=== PATIENT | female | born 1970 | race Caucasian/White ===

== ENCOUNTER → 2018-03-09 | Outpatient (CLI) | payer BC, OTHER ==
--- NOTE | 2018-03-13 16:48 | MAM ---
EXAM DESCRIPTION: 3D Screening BILATERAL : Digital Mammography. CLINICAL HISTORY: 48 years Female SCREENING . No complaints or personal history of breast cancer. Remote family history of breast cancer. Childbirth. Postmenopausal 24 years. Currently on HRT. Lifetime risk of developing breast cancer (Tyrer-Cuzick model)(%): 7.4. COMPARISON: Baseline study at this facility. No prior reports available. TECHNIQUE: Bilateral CC and MLO projection full-field images, digital tomosynthesis mammographic technique. Bilateral digital 2-D full-field MLO images. CAD not available for tomosynthesis or 2-D images. FINDINGS: The breast parenchymal density pattern is: Extremely dense breast tissue, which lowers the sensitivity of mammography. No skin thickening or nipple retraction. Focal asymmetry at the 6:00 position of the middle third of the right breast approximately 5 cm from the nipple. Not associated with microcalcifications. No new focal, stellate mass or density, focal asymmetry , and no suspicious microcalcifications left breast. IMPRESSION: BI-RADS CATEGORY: 0 - INCOMPLETE- Need additional imaging evaluation. FOLLOW-UP: Recall for additional imaging: Targeted right breast ultrasound of the region of interest. Bilateral orthogonal full-field tomosynthesis. Written communication concerning the IMPRESSION and Follow-up, will be mailed to the patient and referring health care provider. Electronically signed by: Papa Harper MD 03/13/2018 4:46 PM [employer]S DEPARTMENT MANAGER
== END ==
LOC: MAMMO 15:14
PROVIDERS: ATTEND Nurse Practitioner Family
DX: Z12.31 Encounter for screening mammogram for malignant neoplasm of breast (principal)

== ENCOUNTER → 2018-07-11 | Outpatient (CLI) | payer OTHER ==
--- NOTE | 2018-07-11 14:06 | CT ---
EXAM DESCRIPTION: Chest w/Contrast CLINICAL HISTORY: 48 years, Female, HEMOPTYSIS R04.2 COMPARISON: None TECHNIQUE: Thin-section noncontrast axial CT images are obtained according to our protocol. Reconstructed MPR images are created and reviewed as well. FINDINGS: Lungs: Patchy infiltrates are seen in the right lower, middle and upper lobes with lesser involvement of the left upper lobe. In the apices, biapical pleural-parenchymal scarring is thought to account for abnormal densities. Differential considerations would include bacterial pneumonia, aspiration pneumonitis or scattered areas of pulmonary hemorrhage. Pulmonary alveolar proteinosis or acute hypersensitivity pneumonitis could have the same appearance. Eosinophilic pneumonia would be considered if the patient has peripheral eosinophilia. Mediastinum: Lymph nodes are normal in size. Normal vascular contours. Heart size is normal with no pericardial effusion. Chest wall/axilla: No mass or adenopathy. Breast tissue appears symmetrical. Lower neck/supraclavicular: No mass or adenopathy. Upper abdomen: Unremarkable upper abdominal viscera. Coronal and sagittal reformatted images confirm the findings. IMPRESSION: Bilateral pulmonary infiltrates. See above. This exam was performed according to our departmental dose-optimization program, which includes automated exposure control, adjustment of the mA and/or kV according to patient size and/or use of iterative reconstruction technique. Total DLP equals 175.71 mGycm. Electronically signed by: Ramez Edwards MD 07/11/2018 2:03 PM CDT
== END ==
LOC: CT 11:36
PROVIDERS: ATTEND Nurse Practitioner Family
DX: R04.2 Hemoptysis (principal); R91.8 Other nonspecific abnormal finding of lung field

== ENCOUNTER → 2019-09-14 | Outpatient (CLI) | payer BC ==
--- NOTE | 2019-09-18 16:22 | MAM ---
EXAM DESCRIPTION: 3D Screening BILATERAL : Digital Mammography. CLINICAL HISTORY: 49 years Female SCREENING . No complaints or personal history of breast cancer. Remote family history of breast cancer. Menarche age 11. Childbirth age 19. Menopause age 24. Currently on HRT. Bilateral benign cyst aspiration. Lifetime risk of developing breast cancer (Tyrer-Cuzick model)(%): 11.6. COMPARISON: Bilateral screening digital breast tomosynthesis March 2018. TECHNIQUE: Bilateral CC and MLO projection full-field images, digital tomosynthesis mammographic technique. Bilateral digital 2-D full-field MLO images. CAD available for 2-D images. FINDINGS: The breast parenchymal density pattern is: Extremely dense breast tissue, which lowers the sensitivity of mammography. No skin thickening or nipple retraction. Increased focal asymmetry in the retroareolar left breast since the prior study. No abnormal microcalcifications. No new focal, stellate mass or density, , and no suspicious microcalcifications bilaterally. IMPRESSION: BI-RADS CATEGORY: 0 - INCOMPLETE- Need additional imaging evaluation. RECOMMENDATIONS: FOLLOW-UP: Recall for additional imaging: Corrected Retroareolar left breast ultrasound.. Written communication concerning the IMPRESSION and Follow-up, will be mailed to the patient and referring health care provider. Electronically signed by: Papa Harper MD 09/18/2019 4:21 PM CDT
== END ==
LOC: MAMMO 15:10
PROVIDERS: ATTEND Nurse Practitioner Family
DX: Z12.31 Encounter for screening mammogram for malignant neoplasm of breast (principal)